=== PATIENT | male | born 1980 ===

== ENCOUNTER → 2017-03-01 | Outpatient (CLI) | payer OTHER ==
--- NOTE | 2017-03-01 17:59 | MR ---
EXAMINATION TYPE: MR knee LT wo con DATE OF EXAM: 03/01/2017 3:23 PM COMPARISON: NONE HISTORY: Brain and TECHNIQUE: Multiplanar, multiecho imaging of the left knee is performed without IV contrast. FINDINGS: There is only a small amount of joint fluid. There is no significant chondromalacia. There is a bucket-handle tear of the posterior horn horn of the lateral meniscus. This is flipped ant eriorly and lies with the anterior horn.. The medial meniscus is unremarkable. Both the anterior and posterior cruciate ligaments are intact. The medial and the lateral collateral ligament complexes are intact. Iliotibial band inserts normally upon Gerdy's tubercle. The popliteus muscle and tendon are normal. Both the quadriceps and patellar tendons are intact. There is mild swelling in the Hoffa fat space. No osseous lesion is seen. IMPRESSION: BUCKET-HANDLE TEAR OF THE POSTERIOR HORN OF THE LATERAL MENISCUS WHICH IS FLIPPED UPON ITSELF AND IS RESIDING ON TOP OF THE ANTERIOR HORN.
== END | disposition home or self-care (01) ==
LOC: RADMRIMAIN 14:49
PROVIDERS: ATTEND Internal Medicine
DX: S83.252A Bucket-handle tear of lateral meniscus, current injury, left knee, initial encounter (principal)